=== PATIENT | female | born 2000 | race American Indian/Alaskan Native ===

== ENCOUNTER 2020-09-06 09:33 | Outpatient (CLI) | payer MEDICAID ==
--- NOTE | 2020-09-08 11:19 | Treadmill Report ---
[facility] Test Date: 2020-09-06 Test Time: 08:33:13 Pat Name: EMMANUEL TITUS Department: Room: Gender: F Rough Rounder: Ellen Shetty : 2000 Requested By: SHAUN RIVAS Order Number: [id number] Reading MD: Shaun Rivas Interpretive Statements Base line EKG showed S.R,WNL. Patient exercised for 11'00". Attained HR of 185/mt. Baseline artifacts noted. No EKG changes to suggest ischemia. No arrhythmia noted. B.P response is appropriate. Test was stopped secondary to SOB. Impression: Very good exercise tolerance. Negative for angina,negative for ischemia. No arrhythmia. Low risk for future cardiac events. Electronically Signed On 09-08-2020 11:19:22 EDT by Shaun Rivas
== END 2020-09-06 09:34 | disposition home or self-care (01) ==
LOC: CARD 09:33
PROVIDERS: ATTEND Internal Medicine
DX: R07.89 Other chest pain (principal); R06.02 Shortness of breath
CPT/HCPCS: 93017